=== PATIENT | female | born 1940 | race Asian ===

== ENCOUNTER 2017-09-07 20:42 | Emergency (ER) | payer SELFPAY ==
[2017-09-07 20:50] VITALS: RESP 16
--- NOTE | 2017-09-07 21:21 | EDPHY ---
H & P Smoking Status: Never smoked Time Seen by Provider: 09/07/17 21:11 HPI/ROS: CHIEF COMPLAINT: Dizziness, high blood pressure HISTORY OF PRESENT ILLNESS: Patient is a 77-year-old female with a history of hypertension and previous bouts of vertigo. At approximately 7:30 a.m. this evening she had sudden onset of severe vertigo. She felt as though the room were spinning. They took her blood pressure and it was 200 systolic. Patient states she had a mild head pressure were symptoms started but that is resolved. Her symptoms are now improving. She has decreased dizziness. She does not feel as though the room is moving. She denies neck pain. No weakness or numbness. No nausea or vomiting. Patient has had no chest pain or shortness of breath. No recent trauma or fall. Patient is visiting her daughter from her pain. They came here on 08/01/2017 will be leaving on 10/23/2017. REVIEW OF SYSTEMS: My complete review of systems is negative except as mentioned in the HPI. ( Shanthi Mcfadden) Past Medical/Surgical History: Includes hypertension, vertigo Past surgical history: Femur fracture Social history: The patient is from [facility]. She does not smoke. She is . Family history: There is a history of CVA. (Shanthi Mcfadden) Physical Exam: 36.4, 154/98, 78, 16, 98% on room air GENERAL: Well-appearing, in no acute distress, alert. HEENT: Eyes normal to inspection, normal pharynx, no signs of dehydration. No nystagmus NECK: No thyromegaly, no lymphadenopathy, supple. RESPIRATORY: Clear to auscultation bilaterally, no rales, rhonchi or wheezing. CVS: Regular rate and rhythm, no rubs, murmurs, or gallops. ABDOMEN: Soft, nontender, nondistended, no organomegaly. BACK: Normal to inspection, no CVA tenderness. SKIN: Normal color, no rash, warm, dry. No pallor. EXTREMITIES: No pedal edema, no calf tenderness, no Homans sign or cords, no joint swelling. NEURO/PSYCH: Higher functions: Alert and Oriented x3. Normal speech and cognition. Normal mood and affect. Cranial nerves: Normal as tested. Cerebellar: Normal as tested. Good finger to nose, good [id number], normal gait. Peripheral exam: Normal motor exam. Normal sensation. Normal reflexes. ( Shanthi Mcfadden S) Constitutional: Initial Vital Signs Temperature (C) 36.4 C 09/07/17 20:46 Heart Rate 78 09/07/17 20:46 Respiratory Rate 16 09/07/17 20:46 Blood Pressure 154/98 H 09/07/17 20:46 O2 Sat (%) 98 09/07/17 20:46 O2 Delivery Mode Room Air Allergies/Adverse Reactions: No Known Allergies Allergy (Verified 09/07/17 20:50) Home Medications: Medication Instructions Recorded amLODIPine/ATORVASTATIN 09/07/17 [Amlodipine-Atorvast 10-10 mg] Medical Decision Making - Diagnostics EKG Interpretation: EKG shows normal sinus rhythm, normal rate, normal axis, normal intervals. There are no ST or T-wave abnormalities. EKG is normal as interpreted by me. (Shanthi Mcfadden) Imaging Results: Imaging Impressions Head CT 09/07/17 21:22 Impression: Stable noncontrast CT of the brain Results called to Dr. Shanthi Mcfadden at the time of the interpretation. Brain MRI 09/07/17 22:11 Impression: 1. No MRI evidence of acute cortical ischemia. 2. 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 Results called to Dr. Buckley at 11:30 PM. ED Course/Re-evaluation: In the emergency department I discussed possible etiologies with the patient and her family. The patient's [facility] She was able to provide communication with the patient. An IV was placed. Laboratory studies were obtained. An EKG and head CT were ordered. Patient's CBC and chemistry were unremarkable. Coags were normal. Troponin was negative. On recheck the patient stated she was feeling better. She had no focal neurologic deficits. Head CT: Please refer the dictated report by Dr. Jaren Clemente. No acute disease noted. 2200: At the patient. She states that she is feeling improved. She has minimal dizziness. No focal weakness or numbness. She has a nonfocal neuro exam. Because of her symptoms an MRI was ordered. I discussed this with the family. I discussed case with Dr. Carter. Patient is signed out at change of shift awaiting MRI results. (Shanthi Mcfadden) MRI of the brain does not show any evidence of stroke or posterior circulation stroke. Unremarkable brain MRI for CVA. White matter disease noted. Please see full dictation report of the MRI report. (Jase Carter) Differential Diagnosis: My differential includes but is not limited to ischemic CVA, hemorrhagic CVA, peripheral vertigo, mass, malignancy, electrolyte abnormality, sugar abnormality , anemia, dysrhythmia, hypertensive urgency, hypertensive emergency (Shanthi Mcfadden) - Data Points Laboratory Results: Laboratory Results 09/07/17 21:14 09/07/17 21:14 09/07/17 09/07/17 09/07/17 21:14 21:14 21:14 WBC 5.44 10^3/uL 10^3/uL (3.80-9.50) RBC 4.74 10^6/uL 10^6/uL (4.18-5.33) Hgb 15.7 g/dL g/dL (12.6-16.3) Hct 45.5 % % (38.0-47.0) MCV 96.0 fL fL (81.5-99.8) MCH 33.1 pg pg (27.9-34.1) MCHC 34.5 g/dL g/dL (32.4-36.7) RDW 13.5 % % (11.5-15.2) Plt Count 120 10^3/uL L 10^3/uL (150-400) MPV 10.1 fL fL (8.7-11.7) Neut % (Auto) 60.7 % % (39.3-74.2) Lymph % (Auto) 31.1 % % (15.0-45.0) [place]oke % (Auto) 6.4 % % (4.5-13.0) Eos % (Auto) 0.7 % % (0.6-7.6) Baso % (Auto) 0.7 % % (0.3-1.7) Nucleat RBC Rel Count 0.0 % % (0.0-0.2) Absolute Neuts (auto) 3.30 10^3/uL 10^3/uL (1.70-6.50) Absolute Lymphs (auto) 1.69 10^3/uL 10^3/uL (1.00-3.00) Absolute Monos (auto) 0.35 10^3/uL 10^3/uL (0.30-0.80) Absolute Eos (auto) 0.04 10^3/uL 10^3/uL (0.03-0.40) Absolute Basos (auto) 0.04 10^3/uL 10^3/uL (0.02-0.10) Absolute Nucleated RBC 0.00 10^3/uL 10^3/uL (0-0.01) Immature Gran % 0.4 % % (0.0-1.1) Immature Gran # 0.02 10^3/uL 10^3/uL (0.00-0.10) PT 12.0 SEC SEC (12.0-15.0) INR 0.87 (0.83-1.16) APTT 26.1 SEC SEC (23.0-38.0) Sodium 139 mEq/L mEq/L (135-145) Potassium 4.3 mEq/L mEq/L (3.5-5.2) Chloride 105 mEq/L mEq/L (97-110) Carbon Dioxide 21 mEq/l L mEq/l (22-31) Anion Gap 13 mEq/L mEq/L (8-16) BUN 21 mg/dL mg/dL (7-23) Creatinine 0.7 mg/dL mg/dL (0.6-1.0) Estimated GFR > 60 Glucose 101 mg/dL H mg/dL (70-100) Calcium 9.6 mg/dL mg/dL (8.5-10.4) Troponin I < 0.012 ng/mL ng/mL (0.000-0.034) Medications Given: Discontinued Medications Sodium Chloride (Ns) 500 mls @ 500 mls/hr IV EDNOW ONE PRN Reason: Protocol Stop: 09/07/17 22:21 Last Admin: 09/07/17 21:27 Dose: 500 mls Meclizine HCl (Meclizine Hcl) 25 mg PO EDNOW ONE Stop: 09/07/17 21:23 Last Admin: 09/07/17 21:27 Dose: 25 mg Departure - Departure Disposition: Home, Routine, Self-Care Clinical Impression: Vertigo Condition: Good Instructions: Vertigo (ED) Referrals: NONE *PRIMARY CARE P,. [Primary Care Provider] - As per Instructions
[2017-09-07] MEDS ORDERED: MECLIZINE HCL 25 MG TAB PO ONE (21:22)
[2017-09-07] MEDS ORDERED: NS 500 ML IV ONE (21:22)
--- NOTE | 2017-09-07 21:23 | CPEKG ---
Heart Rate: 64 RR Interval: 938 P-R Interval: 160 QRSD Interval: 90 QT Interval: 416 QTC Interval: 430 P Midway: 77 QRS Midway: 56 T Wave Midway: 61 EKG Severity - ABNORMAL ECG - EKG Impression: SINUS RHYTHM EKG Impression: CONSIDER LEFT VENTRICULAR HYPERTROPHY Electronically Signed By: Shanthi Mcfadden 07-Sep-2017 22:29:58
[2017-09-07 21:36] LABS: PLATELET COUNT 120 10^3/uL (150-400)
[2017-09-07 21:45] LABS: INR 0.87 (0.83-1.16)
[2017-09-08 00:02] VITALS: BP 137/86; PULSE 58; TEMP 97.9; O2SAT 97
== END 2017-09-08 00:09 | disposition home or self-care (01) ==
DX: R42 Dizziness and giddiness (principal); I10 Essential (primary) hypertension; E86.9 Volume depletion, unspecified